=== PATIENT | male | born 1995 | race Caucasian/White ===

== ENCOUNTER 2021-10-05 02:43 | Emergency (ER) | payer OTHER ==
[~2021-10-05] VITALS: Ht 182.9 cm; Wt 83.9 kg
[2021-10-05] MEDS ORDERED: GABAPENTIN100 MG PO (04:42)
--- NOTE | 2021-10-06 17:48 | EKG ---
[facility] [address] [facility] [place] [address] Signed Normal sinus rhythm Incomplete right bundle branch block Borderline ECG No previous ECGs available Confirmed by AUGUSTUS JUSTICE MD ([id number]) on 10/06/2021 5:48:31 PM Electronically Signed By: AUGUSTUS JUSTICE MD 10/06/21 1748 PATIENT NAME: TRACI YUSUF Electrocardiogram DATE OF : [birth year] PHYSICIAN: AUGUSTUS JUSTICE MD REPORT #: [id number] REPORT IS CONFIDENTIAL AND NOT TO BE RELEASED WITHOUT AUTHORIZATION
== END 2021-10-05 04:57 | disposition home or self-care (01) ==
LOC: ED 02:43
DX: R20.2 Paresthesia of skin (principal)
CPT/HCPCS: 36415; 70450; 80053; 83735; 85025; 86140; 93005; 93010; 99284-25